=== PATIENT | male | born 1980 | race Hispanic/Latino ===

== ENCOUNTER 2019-03-19 00:57 | Emergency (ER) | payer SELFPAY ==
[2019-03-19] MEDS ORDERED: Acetaminophen 500 MG TAB ONE (01:11)
[2019-03-19] MEDS ORDERED: Ibuprofen 200 MG TAB ONE (01:11)
== END 2019-03-19 02:03 | disposition home or self-care (01) ==
LOC: ERS 00:57
DX: J10.1 Influenza due to other identified influenza virus with other respiratory manifestations (principal)
CPT/HCPCS: 87804; 99283

== ENCOUNTER 2021-04-01 12:49 | Emergency (ER) | payer SELFPAY ==
[2021-04-01] MEDS ORDERED: Ibuprofen 800 MG TAB ONE (14:34)
== END 2021-04-01 14:37 | disposition home or self-care (01) ==
LOC: ERS 12:49
DX: M25.461 Effusion, right knee (principal)